=== PATIENT | male | born 1995 | race Two or more races ===

== ENCOUNTER 2021-12-30 23:27 | Emergency (ER) | payer OTHER ==
[~2021-12-30] VITALS: Ht 177.8 cm; Wt 77.1 kg
--- NOTE | 2021-12-31 00:25 | NUR ---
Dr. South at bedside for MSE.
--- NOTE | 2021-12-31 00:48 | NUR ---
Xray at bedside.
[2021-12-31] MEDS ORDERED: OXYC-128 PO (01:04)
--- NOTE | 2021-12-31 01:16 | NUR ---
Patient discharged to home in stable condition. Written and verbal after care instructions given. Patient verbalizes understanding of instructions. Stressed follow up or return to ER for worsening s/s. Patient out of ER with steady gait, no acute signs of distress, VSS, all belongings taken.
[2021-12-31 01:19] VITALS: BP 109/67
== END 2021-12-31 01:19 | disposition home or self-care (01) ==
LOC: ER 23:29
DX: S43.102A Unspecified dislocation of left acromioclavicular joint, initial encounter (principal); W18.39XA Other fall on same level, initial encounter; Y92.89 Other specified places as the place of occurrence of the external cause
CPT/HCPCS: 73030; A4663